=== PATIENT | male | born 1945 | race Caucasian/White ===

== ENCOUNTER 2018-01-07 13:25 | Emergency (ER) | payer MEDICARE ==
[~2018-01-07] VITALS: Ht 167.6 cm; Wt 74.3 kg
[2018-01-07 13:32] VITALS: BP 148/93
[2018-01-07 14:18] LABS: BASOPHILS # (AUTO) 0.17 x10^3/uL (0-0.1); BASOPHILS % (AUTO) 2 % (0-1); EOSINOPHILS # (AUTO) 0.15 x10^3/uL (0-0.4); EOSINOPHILS % (AUTO) 2 % (1-7); LYMPHOCYTES # (AUTO) 0.89 x10^3/uL (1-3.4); LYMPHOCYTES % (AUTO) 13 % (22-44); MD NO; MEAN CORPUSCULAR HGB CONC 32.2 g/dL (33.2-36.2); MEAN CORPUSCULAR VOLUME 89.9 fL (81-97); MEAN PLATELET VOLUME 9.6 fL (7.4-10.4); MONOCYTES # (AUTO) 0.73 x10^3/uL (0.2-0.8); MONOCYTES % (AUTO) 11 % (2-9); NEUTROPHILS # (AUTO) 4.93 x10^3/uL (1.8-6.8); NEUTROPHILS % (AUTO) 72 % (42-75); PLATELET COUNT 241 x10^3/uL (130-400); RED BLOOD COUNT 4.51 x10^6/uL (4.38-5.82); RED CELL DISTRIBUTION WIDTH 17.3 % (9.4-14.8)
[2018-01-07 14:29] LABS: ALBUMIN 3.3 g/dL (3.4-5.0); ANION GAP 7 mmol/L (5-15); CALCIUM 8.6 mg/dL (8.5-10.1); CHLORIDE 100 mmol/L (98-107)
[2018-01-07 14:32] LABS: ALANINE AMINOTRANSFERASE 18 U/L (12-78); ALKALINE PHOSPHATASE 113 U/L (45-117); BILIRUBIN,TOTAL 1.6 mg/dL (0.2-1.0); CREATININE 1.58 mg/dL (0.7-1.3); TOTAL PROTEIN 7.9 g/dL (6.4-8.2)
[2018-01-07 14:38] LABS: ACETAMINOPHEN < 2 mcg/mL (10-30); SALICYLATE LEVEL < 1.7 mg/dL (2.8-20.0)
[2018-01-07] MEDS ORDERED: LIS (16:03)
[2018-01-07] MEDS ORDERED: ASPI-515 PO (16:03)
[2018-01-07] MEDS ORDERED: METO (16:03)
[2018-01-07] MEDS ORDERED: LISI2.5T PO (16:05)
[2018-01-07] MEDS ORDERED: METO1TAB33 PO (16:12)
[2018-01-07] MEDS ORDERED: FURO-93 PO (16:12)
== END 2018-01-07 16:54 | disposition home or self-care (01) ==
LOC: ED 16:40
DX: R21 Rash and other nonspecific skin eruption (principal); I10 Essential (primary) hypertension; I25.2 Old myocardial infarction
CPT/HCPCS: 36415; 80053; 80307; 80329; 85025; 99284; G0480

== ENCOUNTER 2018-03-12 12:01 | Inpatient (IN) | payer MEDICARE ==
[~2018-03-12] VITALS: Ht 167.6 cm; Wt 67.0 kg
[~2018-03-12 12:01] MED LIST: ASPI-515 PO; FURO-93 PO; LIS; LISI2.5T PO; METO; METO1TAB33 PO
[2018-03-12] MEDS ORDERED: SODIUM CHLORIDE FLUSH 10ML SYR IVF ONE (12:30)
[2018-03-12 13:04] LABS: BASOPHILS # (AUTO) 0.08 x10^3/uL (0-0.1); BASOPHILS % (AUTO) 1 % (0-1); EOSINOPHILS # (AUTO) 0.17 x10^3/uL (0-0.4); EOSINOPHILS % (AUTO) 3 % (1-7); LYMPHOCYTES # (AUTO) 0.82 x10^3/uL (1-3.4); LYMPHOCYTES % (AUTO) 14 % (22-44); MD NO; MEAN CORPUSCULAR HEMOGLOBIN 27.2 pg (27.5-34.5); MEAN CORPUSCULAR HGB CONC 32.1 g/dL (33.2-36.2); MEAN CORPUSCULAR VOLUME 84.7 fL (81-97); MONOCYTES # (AUTO) 0.73 x10^3/uL (0.2-0.8); MONOCYTES % (AUTO) 12 % (2-9); NEUTROPHILS # (AUTO) 4.19 x10^3/uL (1.8-6.8); NEUTROPHILS % (AUTO) 70 % (42-75); PLATELET COUNT 185 x10^3/uL (130-400); RED CELL DISTRIBUTION WIDTH 17.2 % (9.4-14.8)
[2018-03-12 13:10] LABS: ALBUMIN 3.1 g/dL (3.4-5.0); ANION GAP 10 mmol/L (5-15); CALCIUM 8.4 mg/dL (8.5-10.1); CHLORIDE 99 mmol/L (98-107)
[2018-03-12 13:16] LABS: ALANINE AMINOTRANSFERASE 15 U/L (12-78); ALKALINE PHOSPHATASE 111 U/L (45-117); BILIRUBIN,TOTAL 1.2 mg/dL (0.2-1.0); CREATININE 1.31 mg/dL (0.7-1.3); TOTAL PROTEIN 7.8 g/dL (6.4-8.2); TROPONIN I 0.029 ng/mL (0.000-0.045)
[2018-03-12 13:46] LABS: MICROSCOPIC NOT IND
[2018-03-12 13:57] LABS: CULTURE INDICATED? NO
[2018-03-12] MEDS ORDERED: OMNIPAQUE 350 MG/ML, 100ML BOTTLE ONE (14:01)
[2018-03-12] MEDS ORDERED: SODIUM CHLORIDE FLUSH 10ML SYR IVF PRN (15:00)
[2018-03-12] MEDS ORDERED: LIDOCAINE-MPF 1%, 5ML ONE ×3 (15:21→16:19)
[2018-03-12] MEDS ORDERED: ACETAMINOPHEN 325 MG TABLET PO PRN (15:30)
[2018-03-12] MEDS ORDERED: ONDANSETRON ODT 4 MG PO PRN (15:30)
[2018-03-12 16:59] VITALS: BP 134/91
[2018-03-12 18:01] LABS: CELLS COUNTED 63
[2018-03-12 18:19] LABS: TROPONIN I 0.022 ng/mL (0.000-0.045)
[2018-03-12] MEDS: FUROSEMIDE 40 MG/4 ML IV SCH (18:22)
[2018-03-12] MEDS: HEPARIN 5,000 UNITS/ML, 1ML SQ SCH (18:22)
[2018-03-12 20:35] VITALS: BP 127/83
[2018-03-13 01:06] LABS: TROPONIN I 0.029 ng/mL (0.000-0.045)
[2018-03-13 01:23] VITALS: BP 130/69
[2018-03-13] MEDS: HEPARIN 5,000 UNITS/ML, 1ML SQ SCH ×3 (02:44→20:35)
[2018-03-13 05:55] LABS: BASOPHILS # (AUTO) 0.02 x10^3/uL (0-0.1); BASOPHILS % (AUTO) 0 % (0-1); EOSINOPHILS # (AUTO) 0.12 x10^3/uL (0-0.4); EOSINOPHILS % (AUTO) 2 % (1-7); LYMPHOCYTES % (AUTO) 9 % (22-44); MD NO; MEAN CORPUSCULAR HEMOGLOBIN 26.9 pg (27.5-34.5); MEAN CORPUSCULAR HGB CONC 32.2 g/dL (33.2-36.2); MEAN CORPUSCULAR VOLUME 83.7 fL (81-97); MEAN PLATELET VOLUME 9.7 fL (7.4-10.4); MONOCYTES # (AUTO) 0.67 x10^3/uL (0.2-0.8); MONOCYTES % (AUTO) 10 % (2-9); NEUTROPHILS # (AUTO) 5.55 x10^3/uL (1.8-6.8); NEUTROPHILS % (AUTO) 80 % (42-75); PLATELET COUNT 173 x10^3/uL (130-400); RED BLOOD COUNT 4.45 x10^6/uL (4.38-5.82); RED CELL DISTRIBUTION WIDTH 17.1 % (9.4-14.8)
[2018-03-13 06:06] LABS: ALBUMIN 2.5 g/dL (3.4-5.0); ANION GAP 6 mmol/L (5-15); CALCIUM 7.9 mg/dL (8.5-10.1); CHLORIDE 101 mmol/L (98-107)
[2018-03-13 06:18] LABS: ALANINE AMINOTRANSFERASE 12 U/L (12-78); ALKALINE PHOSPHATASE 89 U/L (45-117); BILIRUBIN,TOTAL 1.6 mg/dL (0.2-1.0); CHOL/HDL RATIO 2.7; CHOLESTEROL, TOTAL 86 mg/dL (140-239); CREATININE 1.45 mg/dL (0.7-1.3); HDL CHOL % 37 % (26-37); HDL CHOLESTEROL (DIRECT) 32 mg/dL (40-60); LDL CHOLESTEROL,CALCULATED 45 mg/dL (54-169); LDL/HDL RATIO 1.4 (0.5-3.0); TOTAL PROTEIN 6.2 g/dL (6.4-8.2); TRIGLYCERIDES 43 mg/dL (50-200); VLDL CHOLESTEROL 9 mg/dL (0-25)
[2018-03-13 06:28] VITALS: BP 112/67
[2018-03-13] MEDS: METOPROLOL SUCCINATE 50 MG TAB.ER.24H PO SCH (06:31)
[2018-03-13] MEDS: LISINOPRIL 5 MG TABLET PO SCH (08:18)
[2018-03-13] MEDS: ASPIRIN 81 MG TABLET EC PO SCH (08:19)
[2018-03-13] MEDS: POTASSIUM CHLORIDE 20 MEQ TAB.ER.PRT PO SCH (08:19)
[2018-03-13] MEDS: FUROSEMIDE 40 MG/4 ML IV SCH (08:20)
[2018-03-13 12:02] VITALS: BP 79/46
[2018-03-13] MEDS ORDERED: SODIUM CHLORIDE 0.9% 250 ML IV ONE (12:30)
[2018-03-13 15:49] VITALS: BP 92/55
[2018-03-13 19:08] VITALS: BP 94/59
[2018-03-13 20:33] VITALS: BP 99/66
[2018-03-13] MEDS: FUROSEMIDE 20 MG TABLET PO SCH (20:35)
[2018-03-13 20:37] LABS: CLOSTRIDIUM DIFFICILE ANTIGEN NEGATIVE; CLOSTRIDIUM DIFFICILE TOXIN NEGATIVE (Negative)
[2018-03-14 01:03] VITALS: BP 99/58
[2018-03-14 05:06] VITALS: BP 105/67
[2018-03-14] MEDS: METOPROLOL SUCCINATE 50 MG TAB.ER.24H PO SCH (05:10)
[2018-03-14] MEDS: HEPARIN 5,000 UNITS/ML, 1ML SQ SCH ×3 (05:11→20:00)
[2018-03-14 07:14] VITALS: BP 98/60
[2018-03-14 08:18] LABS: ALBUMIN 2.7 g/dL (3.4-5.0); ANION GAP 7 mmol/L (5-15); CALCIUM 8.6 mg/dL (8.5-10.1); CHLORIDE 101 mmol/L (98-107); CREATININE 1.28 mg/dL (0.7-1.3)
[2018-03-14 08:25] VITALS: BP 106/68
[2018-03-14] MEDS: FUROSEMIDE 20 MG TABLET PO SCH ×2 (08:27→17:19)
[2018-03-14] MEDS: POTASSIUM CHLORIDE 20 MEQ TAB.ER.PRT PO SCH (08:27)
[2018-03-14] MEDS: ASPIRIN 81 MG TABLET EC PO SCH (08:27)
[2018-03-14] MEDS: LISINOPRIL 5 MG TABLET PO SCH (08:28)
[2018-03-14 13:22] VITALS: BP 92/57
[2018-03-14 18:42] VITALS: BP 115/76
[2018-03-15 00:31] VITALS: BP 117/83
[2018-03-15] MEDS: HEPARIN 5,000 UNITS/ML, 1ML SQ SCH ×3 (04:00→20:00)
[2018-03-15 05:15] VITALS: BP 116/72
[2018-03-15] MEDS: METOPROLOL SUCCINATE 50 MG TAB.ER.24H PO SCH (05:18)
[2018-03-15] MEDS ORDERED: REGADENOSON 0.4 MG/5 ML SYRINGE ONE (08:49)
[2018-03-15 10:37] VITALS: BP 116/73
[2018-03-15 11:00] VITALS: BP 104/58
[2018-03-15] MEDS: FUROSEMIDE 20 MG TABLET PO SCH ×2 (11:05→17:36)
[2018-03-15] MEDS: POTASSIUM CHLORIDE 20 MEQ TAB.ER.PRT PO SCH (11:05)
[2018-03-15] MEDS: ASPIRIN 81 MG TABLET EC PO SCH (11:06)
[2018-03-15 13:40] VITALS: BP 97/63
[2018-03-15 18:45] VITALS: BP 125/84
[2018-03-15] MEDS ORDERED: ATORVASTATIN 40 MG TABLET PO SCH (21:00)
[2018-03-16 00:28] VITALS: BP 115/70
[2018-03-16] MEDS: HEPARIN 5,000 UNITS/ML, 1ML SQ SCH ×2 (04:00→12:00)
[2018-03-16] MEDS: METOPROLOL SUCCINATE 50 MG TAB.ER.24H PO SCH (05:34)
[2018-03-16 06:38] VITALS: BP 117/76
[2018-03-16 07:37] LABS: ALBUMIN 2.6 g/dL (3.4-5.0); ANION GAP 8 mmol/L (5-15); CALCIUM 7.9 mg/dL (8.5-10.1); CHLORIDE 101 mmol/L (98-107); CREATININE 1.03 mg/dL (0.7-1.3)
[2018-03-16] MEDS ORDERED: FUROSEMIDE 40 MG TABLET PO SCH (08:43)
[2018-03-16] MEDS: POTASSIUM CHLORIDE 20 MEQ TAB.ER.PRT PO SCH (08:50)
[2018-03-16] MEDS: ASPIRIN 81 MG TABLET EC PO SCH (08:51)
[2018-03-16] MEDS ORDERED: SPIRONOLACTONE 25 MG TABLET PO SCH (09:00)
[2018-03-16] MEDS ORDERED: LISINOPRIL 5 MG TABLET PO SCH (09:00)
[2018-03-16 12:20] VITALS: BP 112/70
[2018-03-16] MEDS ORDERED: METO-93 PO (13:29)
[2018-03-16] MEDS ORDERED: ATOR40TA78 PO (13:29)
[2018-03-16] MEDS ORDERED: FURO-93 PO (13:29)
[2018-03-16] MEDS ORDERED: SPIR25TA PO (13:29)
[2018-03-16 20:00] VITALS: BP 165/78
== END 2018-03-16 20:35 | disposition home or self-care (01) | DRG 291 ==
LOC: ED 14:52 → EDIP 14:57 → 4WST 16:11
PROVIDERS: ADMIT Internal Medicine; ATTEND Internal Medicine
PROC: 0W9B3ZZ Drainage of Left Pleural Cavity, Percutaneous Approach (ICD-10-PCS; principal; 2018-03-13)
PROC: 0W993ZZ Drainage of Right Pleural Cavity, Percutaneous Approach (ICD-10-PCS; 2018-03-13)
DX: I11.0 Hypertensive heart disease with heart failure (principal); J96.90 Respiratory failure, unspecified, unspecified whether with hypoxia or hypercapnia; J90 Pleural effusion, not elsewhere classified; R18.8 Other ascites; I50.23 Acute on chronic systolic (congestive) heart failure; E78.5 Hyperlipidemia, unspecified; I25.10 Atherosclerotic heart disease of native coronary artery without angina pectoris; I25.5 Ischemic cardiomyopathy; K40.90 Unilateral inguinal hernia, without obstruction or gangrene, not specified as recurrent; K43.9 Ventral hernia without obstruction or gangrene; E87.70 Fluid overload, unspecified; I95.9 Hypotension, unspecified; R63.0 Anorexia; R10.33 Periumbilical pain; Z85.828 Personal history of other malignant neoplasm of skin; Z87.891 Personal history of nicotine dependence; I25.2 Old myocardial infarction; Z95.1 Presence of aortocoronary bypass graft; Z95.5 Presence of coronary angioplasty implant and graft; Z99.81 Dependence on supplemental oxygen
CPT/HCPCS: 0399T; 32555; 36415; 71045; 74177; 78452; 80053; 80061; 80069; 81003; 82150; 82945; 83615; 83690; 83735; 83880; 83986; 84100; 84157; 84439; 84443; 84484; 85025; 87015; 87070; 87075; 87102; 87116; 87205; 87206; 87324; 89051; 93005; 93017; 93306; 99285; G0378; J1644; J1940; J2785; Q9967; A9502; C9898; J7050

== ENCOUNTER 2018-04-28 13:10 | Outpatient (CLI) | payer MEDICARE ==
[~2018-04-28 13:10] MED LIST changes: +ATOR40TA78 PO; +METO-93 PO; +SPIR25TA PO
[2018-05-05 13:24] LABS: CRYPTOSPORIDIUM ANTIGEN Negative (Negative)
== END 2018-04-28 23:59 | disposition home or self-care (01) ==
LOC: LAB 13:10
PROVIDERS: ATTEND Internal Medicine
DX: R10.9 Unspecified abdominal pain (principal)
CPT/HCPCS: 87046; 87328; 87329; 87427